=== PATIENT | male | born 2000 | race Caucasian/White ===

== ENCOUNTER 2024-06-19 15:44 | Emergency (ER) | payer MEDICAID ==
[~2024-06-19] VITALS: Ht 167.6 cm; Wt 77.0 kg
[2024-06-19 16:02] VITALS: BP 131/82; PULSE 109; RESP 18; TEMP 36.8; O2SAT 99
[2024-06-19 18:24] LABS: BASOPHILS % 0.5 % (0.0-2.0); EOSINOPHILS % 0.2 % (0.0-5.0); HEMATOCRIT. 41.9 % (42.0-52.0); HEMOGLOBIN. 14.7 g/dL (14.0-18.0); MEAN CORPUSCULAR HEMOGLOBIN 31.4 pg (28.0-32.0); MEAN CORPUSCULAR HGB CONC 35.1 g/dL (31.0-37.0); MEAN CORPUSCULAR VOLUME 89.5 fL (80.0-94.0); MEAN PLATELET VOLUME 8.5 fl (7.4-10.4); MONOCYTES % 3.6 % (2.0-8.0); NEUTROPHILS % 86.7 % (40.0-76.0); PLATELET 240 x1000/uL (130-400); RED BLOOD CELL COUNT 4.69 mill/uL (4.7-6.1); RED CELL DISTRIBUTION WIDTH 12.6 % (11.6-14.6); WHITE BLOOD COUNT 8.8 x1000/uL (4.5-11.0)
[2024-06-19 18:36] LABS: CHLORIDE 106 mEq/L (98-107); POTASSIUM 3.6 mEq/L (3.5-5.1); SODIUM 139 mEq/L (136-145)
[2024-06-19 18:37] LABS: CARBON DIOXIDE 29 mEq/L (21-32)
[2024-06-19 18:38] LABS: CALCIUM 11.1 mg/dL (8.7-10.4)
[2024-06-19 18:42] LABS: CREATININE 0.8 mg/dL (0.6-1.3); GLUCOSE 118 mg/dL (70-105); UREA NITROGEN BLOOD 11 mg/dL (9-23)
[2024-06-19] MEDS ORDERED: MECL-299 MT (18:58)
== END 2024-06-19 19:33 | disposition home or self-care (01) ==
LOC: ER 15:44
DX: R42 Dizziness and giddiness (principal); Z79.899 Other long term (current) drug therapy
CPT/HCPCS: 36415; 80048; 85025; 99284